=== PATIENT | female | born 1955 | race Caucasian/White ===

== ENCOUNTER 2021-02-07 07:50 | Outpatient (CLI) | payer BC, SELFPAY ==
[2021-02-07 09:39] LABS: Urine Cotinine NEGATIVE
[2021-02-07 09:48] LABS: Hemoglobin A1C 5.6 % (<5.7)
== END 2021-02-07 07:51 | disposition home or self-care (01) ==
PROVIDERS: PCP Nurse Practitioner Family; Visit Provider Orthopaedic Surgery
DX: M17.11 Unilateral primary osteoarthritis, right knee (principal); Z01.818 Encounter for other preprocedural examination
CPT/HCPCS: 80307; 83036; 86850; 86900; 86901; 87081

== ENCOUNTER 2021-02-17 02:06 | Day surgery (SDC) | payer BC, SELFPAY ==
[2021-02-07 08:14] VITALS: BP 131/79; PULSE 78; RESP 16; TEMP 37.1; O2SAT 97; BMI 27.4
--- NOTE | 2021-02-16 11:25 | WPDANESEPPF ---
Anes - Initial Pre Proc Eval Procedure: Operation Date: 02/17/21 10:30 Proposed Procedures p Right Total Knee Arthroplasty - Jamie Fofana MD <Eitan Hernandez MD - Last Filed: 02/17/21 11:15> Date/Time: 02/16/21 11:25 <Eitan Hernandez MD - Last Filed: 02/17/21 11:15> Surgeon: Jamie Fofana MD <Eitan Hernandez MD - Last Filed: 02/17/21 11:15> Pre Op Diagnosis: Right Knee OA <Eitan Hernandez MD - Last Filed: 02/17/21 11:15> Patient Data Age: 65 Gender: F Height: 1.7 m Weight: 79.6 kg <Eitan Hernandez MD - Last Filed: 02/17/21 11:15> Last Vital Signs Temp 37.1 C 02/07/21 08:14 Pulse 78 02/07/21 08:14 Resp 16 02/07/21 08:14 BP 131/79 02/07/21 08:14 Pulse Ox 97 02/07/21 08:14 <Eitan Hernandez MD - Last Filed: 02/17/21 11:15> Allergies Allergy/AdvReac Type Severity Reaction Status Date / Time codeine AdvReac Mild Nausea and Unverified 02/17/21 09:32 Vomiting <Eitan Hernandez MD - Last Filed: 02/17/21 11:15> Home Medications Medication Instructions Recorded Confirmed Type atorvastatin 20 mg tablet 20 mg PO HS 12/24/20 02/17/21 History bupropion HCl 300 mg 24 hr tablet, 300 mg PO QAM 12/24/20 02/17/21 History extended release famotidine 40 mg tablet 40 mg PO HS 12/24/20 02/17/21 History lisinopril 10 mg tablet 10 mg PO HS 12/24/20 02/17/21 History omeprazole 20 mg capsule,delayed 20 mg PO QAM 12/24/20 02/17/21 History release ropinirole 1 mg tablet 1 mg PO HS 12/24/20 02/17/21 History dimenhydrinate [Dramamine] 50 mg PO Q4-6H PRN 02/07/21 02/17/21 History ibuprofen 600 mg PO Q6H PRN 02/07/21 02/17/21 History levothyroxine 150 mcg PO QAM 02/07/21 02/17/21 History magnesium hydroxide [Milk of 30 ml PO DAILY PRN 02/07/21 02/17/21 History Magnesia] rivaroxaban 10 mg tablet 10 mg PO DAILY #14 tablet 02/11/21 Rx <Eitan Hernandez MD - Last Filed: 02/17/21 11:15> Patient hx anesthesia problems: none <Bhanu Edmond DO - Last Filed: 02/17/21 09:42> Family hx anesthesia problems: none <Bhanu Edmond DO - Last Filed: 02/17/21 09:42> [facility] Past Medical History Medical History: Medical History (Updated 02/16/21 @ 11:27 by Eitan Hernandez MD) Anxiety Degenerative arthritis of knee, bilateral Depression GERD (gastroesophageal reflux disease) Hyperlipidemia Hypertension Hypothyroidism Overweight (BMI 25.0-29.9) Pain in right knee Thyroid disorder <Eitan Hernandez MD - Last Filed: 02/17/21 11:15> Family History Family History: Family History Mother Family history of osteoporosis Family history of scoliosis Family history of lupus erythematosus Father Family history of diabetes mellitus in first degree relative Family history of malignant neoplasm of gastrointestinal tract Family history of heart disease in male family member before age 55 <Eitan Hernandez MD - Last Filed: 02/17/21 11:15> Social History Social History: Social History Smoking status: Never smoker Alcohol intake: current Drinks per week: 8 Substance use: never Living arrangements: with family Additional living arrangements comments: AND SON 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
[2021-02-17] VITALS (13 sets, daily range): BP systolic 111–151; BP diastolic 67–90; PULSE 75–97; RESP 10–20; TEMP 35.7–37.2; O2SAT 93–100; BMI 28.4
--- NOTE | ~2021-02-17 | XR_ITS ---
EXAMINATION: XR knee RT 2V DATE: 02/17/2021 14:05 INDICATION: Postoperative evaluation following right total knee arthroplasty. TECHNIQUE: Anteroposterior and lateral views of the right knee were obtained. COMPARISON: None. FINDINGS: Right total knee arthroplasty with patellar resurfacing appears well seated and in near anatomic alig nment. No fractures identified. Expected postoperative subcutaneous and intra-articular gas. IMPRESSION: 1. Right total knee arthroplasty, negative for postoperative purposes. Reviewed, dictated and finalized at location A.
[2021-02-17] MEDS: ACETAMINOPHEN 500 MG TABLET 1000 MG PO ×2 (09:04→16:04)
[2021-02-17] MEDS: TRANEXAMIC ACID 1,000MG/ISO100 1,000 MG/100 ML BAG 200 MG IVPB (09:12)
[2021-02-17] MEDS: LACTATED RINGERS 1,000 ML 30 ML IV CONT (09:12)
[2021-02-17] MEDS: SCOPOLAMINE 1.5 MG PATCH TRANSDERM (09:27)
--- NOTE | 2021-02-17 10:35 | WPDHPUPDATE1 ---
History and Physical Update Update Date/Time: 02/17/21 10:35 History and Physical has been reviewed, including an updated exam of the patient. There are NO changes in the patient's condition. Risks, benefits, and alternatives have been discussed and questions answered. Patient agrees to proceed with procedure.
--- NOTE | 2021-02-17 11:15 | WPDANESPNB ---
Anes - Peripheral Nerve Block Date/Time: 02/17/21 11:15 I have discussed with the patient/family/POA the placement of a peripheral nerve block for post-operative pain management, including associated risks, benefits, complications, and side effects. Alternative methods of post-operative analgesia were detailed. Questions were solicited and answers provided to the satisfaction of the patient/family/POA. Time-Out: A pre-procedural Time-Out was completed immediately before starting the procedure and confirmed: Patient Identification, Site, Procedure, Patient Position and the Availability of Requisite Equipment. Clinical Indications: Acute post-operative pain management requested by the operative surgeon. Nerve Block Insertion Note Anes-nerve block: adductor canal right Patient position: supine Skin prep: chlorhexidine Needle: 22 gauge, stimulating, insulated echogenic needle. Needle length: 80 mm Technique: ultrasound Technique comment: in plane Injectate: bupivacaine 0.5% with epi 5 mcg/ml (30cc) Observations: tolerated well Complications: none Procedure start time:: 1104 Procedure end time:: 110
[2021-02-17] MEDS: ceFAZolin 2 GM/D5W 50 ML 2 GM/50 ML BAG IVPB ×2 (11:33→18:26)
[2021-02-17] MEDS: BUPIVACAINE/EPINEPHRINE 0.25% 10 ML VIAL 60 ML INFILTRATE (12:04)
--- NOTE | 2021-02-17 13:59 | W.PM.PROC2 ---
Procedure Note - Detailed Date of Procedure 02/17/21 Pre-op Diagnosis Right Knee OA Post-op Diagnosis same Procedure Performed Right total knee replacement Surgeon Jamie Fofana MD Set Up / Operator Rosa Aquino Anesthesia general and regional Indications see H and P Description of Procedure The patient was identified and proper site identified. In the preop holding area the anesthesia team performed a right sub sartorial block after which the patient was taken to the operating room and transferred to the OR table positioning supine taking care to pad the torso and extremities. After general anesthetic induction and intubation a nonsterile tourniquet was placed high on the right thigh. The right lower extremity was prepped and draped in the usual sterile fashion. The extremity was exsanguinated and with the knee flexed tourniquet was inflated to 300 mmHg remaining up for approximately 69 minutes. An anterior midline incision was made and a mid vastus approach was used. Infra and suprapatellar fat pads were excised. Patella was resected leaving 15 mm thickness and prepared for the 31 round three peg component. Using the intramedullary guide the distal femur was cut in the proper orientation for the size 65 femoral component. Using the extramedullary guide the tibia was cut perpendicular to the long axis protecting collateral ligaments and popliteal structures. It was sized to a 71. Flexion and extension gaps were balanced. Trial reduction was undertaken and the weight-bearing line was noted to passed through the center of the joint. Proximal tibia was drilled and punched in the proper orientation for the real component. Trial components were removed. The bone surfaces were washed with pulsatile lavage and dried. The real components were cemented simultaneously. The knee was held in extension and the patella held clamped until the cement had cured. Excess cement was removed from the joint. After trialing it was determined that the 10 mm insert gave full range of motion from 0-120 degrees of flexion and the patella tracked in the femoral groove with no lift-off. After final lavage the joint the real 10 a poly insert was placed and secured with a locking bar. A Betadine and saline wash was placed into the wound and allowed to sit for approximately 3 minutes and then evacuated. Periarticular tissues were infiltrated with 60 cc of the 0.25% Marcaine and epinephrine solution. Surgicel powder was used for hemostasis as well. The extensor mechanism was repaired with #2 Vicryl suture and 0 looped PDS suture. Subcu was reapproximated with three 0 Monocryl, two 0 strata fix and tissue adhesive for the skin. A sterile dressing was applied. She tolerated the procedure well, was awakened and extubated, transferred to the bed and was taken to recovery area in stable condition. There were no known intraoperative complications. Perioperative antibiotics were administered. Estimated Blood Loss 100 Tourniquet Time 69 Drains No Packing No Pathology none sent Complications No immediate complications Condition stable Disposition PACU
--- NOTE | 2021-02-17 15:31 | ADMGEN ---
This patient, Pamela Gaspar, was admitted to Medical Room 254-01. Patient/family oriented to hospital policies and general routines including ID bracelet, bed and alarms, visiting hours, pain management, procedures, bathroom and other care routines, personal items, smoking policy, room service/diet, and visiting hours. Information on how to activate the Rapid Response Team has been discussed. Patient/Family are encouraged to report perceived risks to care and to ask questions if they do not understand what they are told or what they should do.
[2021-02-17] MEDS: SODIUM CHLORIDE 0.9% IV 1,000 ML 125 ML IV CONT (16:04)
[2021-02-17] MEDS: DOCUSATE SODIUM 100 MG CAPSULE PO (16:04)
[2021-02-17] MEDS: oxyCODONE/ACETAMINOPHEN (*CRX) 5-325 MG TABLET 1 TABLET PO ×2 (16:05→20:12)
[2021-02-17] MEDS: ONDANSETRON INJ 4 MG/2 ML VIAL IV PUSH (16:12)
[2021-02-17] MEDS: KETOROLAC 15 MG/ML VIAL (*BKC) IV PUSH (17:34)
[2021-02-17] MEDS: rOPINIRole HCL 1 MG TABLET PO (20:12)
[2021-02-17] MEDS: ATORVASTATIN 20 MG TABLET PO (20:12)
[2021-02-17] MEDS: FAMOTIDINE 20 MG TABLET 40 MG PO (20:12)
[2021-02-17] MEDS: lisinopriL 10 MG TABLET PO (20:12)
[2021-02-18 00:13] VITALS: BP 106/64; PULSE 66; RESP 16; TEMP 36.1; O2SAT 96
[2021-02-18] MEDS: KETOROLAC 15 MG/ML VIAL (*BKC) IV PUSH ×2 (00:26→05:35)
[2021-02-18] MEDS: oxyCODONE/ACETAMINOPHEN (*CRX) 5-325 MG TABLET 1 TABLET PO ×3 (00:27→09:10)
[2021-02-18] MEDS: ACETAMINOPHEN 500 MG TABLET 1000 MG PO ×2 (00:27→05:35)
[2021-02-18] MEDS: ceFAZolin 2 GM/D5W 50 ML 2 GM/50 ML BAG IVPB ×2 (03:04→11:53)
[2021-02-18 04:22] VITALS: BP 103/58; PULSE 57; RESP 16; TEMP 36.1; O2SAT 96
[2021-02-18] MEDS: LEVOTHYROXINE SODIUM 150 MCG TABLET PO (05:35)
--- NOTE | 2021-02-18 07:45 | PM.DS ---
DS: Admitting Diagnosis Admitting Diagnosis Admitting Diagnosis: osteoarthritis right knee DS: Discharge Diagnosis Discharge Diagnosis (1) History of right knee joint replacement: Code(s): Z96.651 - Presence of right artificial knee joint Status: Resolved Assessment and Plan: Plan discharge home today. Surgery discussed and instructions reviewed. DS: Summary Hospital Course Reason for hospitalization: Observation after outpatient procedure Hospital Course: Following the patient's surgery, she was admitted to the floor. Therapy was begun and she has made good progress. She will be discharged home today. Status at Discharge Functional status at discharge: uses cane/walker Overall status at discharge: patient is not back to baseline Time Spent with Patient Time attestation: Total time spent providing and/or coordinating discharge services: Exam Const: General: cooperative, no acute distress and alert Nutritional Appearance: other Orientation/consciousness: patient oriented x3 Limitations: no limitations HENMT: Head: normal to inspection Ears: hearing grossly normal bilaterally Face and sinus: face symmetric Mouth: Yes moist mucous membranes Teeth and gingiva: fair dentition Eyes: Alignment and Position: alignment normal and position normal Sclera: sclerae normal Neck: Neck: normal visual inspection and nontender Chest: Chest palpation & inspection: normal inspection of the chest Resp: Effort & Inspection: normal respiratory effort and able to speak in complete sentences GI: Inspection: other ( Nondistended nontender) Skin: General skin exam: normal color Rashes: no rashes Neuro: General: patient oriented x3 Cognition (Neuro): normal cognition Speech: normal speech Extrem: General: normal to inspection and other Other: Exam of the right knee shows dry dressing with minimal swelling and no bruising. Neurovascular status right lower extremity grossly intact. Calves negative. Psych: Appearance: grossly normal Mental Status: mental status grossly normal Discharge Plan Discharge Patient Disposition: Home, Self-Care Discharge Instructions: 3 times daily for 20 minutes each time, reclining in bed with ice packs over the incision and a pillow underneath the calf of the affected leg, not under the knee. Your wound is glued so it is okay to get into the shower and get the wound wet in two days. Be sure to read through all the information that came from a my office and the hospital. Most of the answers you will need can be found that material. Call the office with any questions that you cannot find answers to, or concerns you may have. After the Xarelto is completed, start taking one coated 325 mg aspirin daily and do this for four more weeks. Please call [facility] at as soon as possible to [] follow-up appointment to be seen in [] weeks. Also, call the office with any orthopedic/surgical related questions prior to follow-up. Be sure to get up and move around several times daily but do not overdo it. Take the arthritis formula Tylenol 650 mg tablet on an 8 hour schedule. A good 8 hour schedule is: 6:00 a.m., 2:00 p.m., 10:00 p.m. you may take the prescribed pain medication along with the Tylenol; it is not to be taken instead of the Tylenol. I would like for you to take the Tylenol on a schedule for 2-3 weeks. You have a Celebrex prescription. He will take this twice a day for one week with your other medication. Patient Instructions: Rivaroxaban (By mouth) Discharge Medications: New oxycodone 5 mg Tablet 5 mg PO Q4H PRN (Reason: Pain Rated 4-6) Qty: 40 RF: 0 celecoxib [Celebrex] 100 mg capsule 100 mg PO BID Qty: 14 RF: 0 ondansetron HCl [Zofran] 4 mg tablet 4 mg PO Q6H PRN (Reason: nausea and vomiting) Qty: 10 RF: 2 Continued Xarelto 10 mg tablet 10 mg PO DAILY Qty: 14 RF: 0 bupropion HCl 300 mg tablet extended release 24 hr
[2021-02-18] MEDS: DOCUSATE SODIUM 100 MG CAPSULE PO (08:23)
[2021-02-18] MEDS: polyethylene glycoL 3350 17 GM POWD.PACK PO (08:23)
[2021-02-18] MEDS: PANTOPRAZOLE 40 MG TABLET PO (08:24)
[2021-02-18] MEDS: buPROPion HCL XL (24 HR) 150 MG TABCR 300 MG PO (08:24)
[2021-02-18 08:55] VITALS: BP 108/52; PULSE 70; RESP 16; TEMP 36.8; O2SAT 97
--- NOTE | 2021-02-18 09:16 | WPDANESPN ---
Anes - Prog Note Post-Op Date/Time: 02/18/21 09:16 Cardiovascular status: normal Respiratory status: normal Airway patency: baseline Mental status: baseline Post-Op hydration status: normal Vital Signs: Last Vital Signs Temp 36.1 C L 02/18/21 04:22 Pulse 57 L 02/18/21 04:22 Resp 16 02/18/21 04:22 BP 103/58 L 02/18/21 04:22 Pulse Ox 96 02/18/21 04:22 Pain Score (VAS): 08/11 I/O: Intake & Output 02/17/21 02/18/21 02/18/21 23:59 07:59 15:59 Intake Total 1065 1350 480 Output Total 800 400 Balance 265 950 480 Post-procedural complaints: none Patient Feedback: Patient satisfied with anesthetic care.
[2021-02-18] MEDS: RIVAROXABAN 10 MG TABLET PO (11:53)
== END 2021-02-18 14:00 | disposition home or self-care (01) ==
LOC: ANHSURGERY 08:31 → ANH2MED 15:24
PROVIDERS: PCP Nurse Practitioner Family; Visit Provider Orthopaedic Surgery
PROC: (CPT 27447; principal; 2021-02-17 10:30)
DX: M17.11 Unilateral primary osteoarthritis, right knee (principal); G89.18 Other acute postprocedural pain; I10 Essential (primary) hypertension; E78.5 Hyperlipidemia, unspecified; K21.9 Gastro-esophageal reflux disease without esophagitis; F41.8 Other specified anxiety disorders; E03.9 Hypothyroidism, unspecified
CPT/HCPCS: 27447; 64447; 73560; 97110; 97116; 97161; 97165; A9270; C1713; C1776; J0690; J1100; J1170; J1885; J2250; J2405; J2704; J3010; J7030; J7120

== ENCOUNTER 2021-11-24 08:12 | Outpatient (CLI) | payer BC, SELFPAY ==
--- NOTE | ~2021-11-24 | NM_ITS ---
EXAMINATION: NM bone scan limited area DATE: 11/24/2021 12:37 INDICATION: Right knee pain post total knee arthroplasty. TECHNIQUE: 25 mCi Tc-99m HDP was administered intravenously. Delayed scintigrams of the right knee w as obtained in anterior, posterior and left and right lateral projections. COMPARISON: Radiographs dated 11/05/2021, 04/21/2021 and 02/17/2021 FINDINGS: Photopenic defect at the right knee corresponding to a total knee arthroplasty. There is increased mahnaz ne uptake along the margins of the arthroplasty which is within normal limits within the first year p ost arthroplasty placement. IMPRESSION: 1. Expected pattern of bone uptake within the first year along the margins of a right total knee arth roplasty. Reviewed, dictated and finalized at location B. IMPRESSION: 1. Expected pattern of bone uptake within the first year along the margins of a right total knee arthroplasty.
== END 2021-11-24 08:13 | disposition home or self-care (01) ==
PROVIDERS: PCP Nurse Practitioner Family; Visit Provider Orthopaedic Surgery
DX: G89.29 Other chronic pain (principal); M25.561 Pain in right knee; Z96.651 Presence of right artificial knee joint
CPT/HCPCS: 78300; A9561

== ENCOUNTER 2021-11-26 07:00 | Outpatient (CLI) | payer BC, SELFPAY ==
--- NOTE | ~2021-11-26 | NM_ITS ---
EXAMINATION: [facility] scan DATE: 11/26/2021 14:02 INDICATION: Right knee pain. TECHNIQUE: 9.7 mCi Tc-99m Ceretec was administered intravenously. Scintigrams of the knees were obta ined. COMPARISON: Right knee radiographs 11/05/2021, bone scan 11/24/2021 FINDINGS: There is a total right knee arthroplasty. There is increased activity in distal femur inclu ding the diaphysis and metaphysis and arthroplasty margin. There is increased activity in proximal ti gris adjacent to the arthroplasty. The comparison bone scan demonstrates increased activity adjacent t o the arthroplasty in the distal femur, proximal tibia, and patella. The comparison radiographs demon strate no lucencies suggestive suggest loosening or infection. There is a small knee joint effusion v ersus synovitis on the radiographs. IMPRESSION: 1. Increased activity in femur and proximal tibia, which may be normal given the timing of the prior surgery and the findings on other imaging, but infection cannot be excluded. Knee joint aspiration is recommended. Reviewed, dictated and finalized at location A. IMPRESSION: 1. Increased activity in femur and proximal tibia, which may be normal given th e timing of the prior surgery and the findings on other imaging, but infection cannot be excluded. Knee joint aspiration is recommended.
== END 2021-11-26 07:01 | disposition home or self-care (01) ==
PROVIDERS: PCP Nurse Practitioner Family; Visit Provider Orthopaedic Surgery
DX: G89.29 Other chronic pain (principal); M25.561 Pain in right knee; Z96.651 Presence of right artificial knee joint
CPT/HCPCS: 78800; A9521

== ENCOUNTER 2021-12-03 12:24 | Outpatient (CLI) | payer BC, SELFPAY ==
--- NOTE | ~2021-12-03 | US_ITS ---
EXAMINATION: US knee asp inj w image RT DATE: 12/03/2021 13:26 INDICATION: Right total knee arthroplasty presenting with pain and abnormal bone likely blood cell sc ans. TECHNIQUE: The procedure including the risks and benefits was discussed with the patient. Risks discu ssed included bleeding and infection. The patient understood the risks and agreed to proceed. The sk in overlying the medial gutter of the suprapatellar pouch of the right knee was prepped and draped in usual sterile fashion. Anesthetic was administered with 1% lidocaine subcutaneously. An 22 gauge c ore biopsy needle was advanced under continuous ultrasound observation into the small joint effusion. A total of 19 mL of slightly turbid light maranda-colored fluid was aspirated and sent to the lab for studies as ordered by the referring physician. The needle was removed and the entry site was cleaned and dressed. Post procedure ultrasound demonstrated no hemorrhage. FINDINGS: Ultrasound images demonstrate the aspiration needle within a small right knee joint effusio n. IMPRESSION: 1. Successful Ultrasound-guided right knee joint aspiration. Reviewed, dictated and finalized at location A.
[2021-12-03 16:29] LABS: Crystals Synovial Fluid None Seen (None Seen)
[2021-12-03 16:30] LABS: Source Synovial Fluid Synovial fluid
[2021-12-03 16:31] LABS: Appearance Synovial Fluid Hazy (Clear); Color Synovial Fluid Yellow (Colorless)
[2021-12-03 16:32] LABS: Lymphocytes Synovial Fluid 28 %; Macrophages Synovial Fluid 3 %; Monocytes Synovial Fluid 51 %; Neutrophils Synovial Fluid 18 % (0-25)
== END 2021-12-03 12:25 | disposition home or self-care (01) ==
PROVIDERS: PCP Nurse Practitioner Family; Visit Provider Orthopaedic Surgery
DX: M25.561 Pain in right knee (principal)
CPT/HCPCS: 20611; 87070; 87075; 87205; 89051; 89060